=== PATIENT | female | born 1945 | race Caucasian/White ===

== ENCOUNTER → 2019-08-27 | Outpatient (CLI) | payer MEDICARE | LOC: CARD 13:40 | PROVIDERS: ATTEND Family Medicine | DX: I42.0 Dilated cardiomyopathy (principal) | CPT/HCPCS: 93306 ==

== ENCOUNTER 2021-03-15 05:39 | Outpatient (CLI) | payer MEDICARE ==
[~2021-03-15] VITALS: Ht 160 cm; Wt 87.3 kg
[~2021-03-15 05:39] MED LIST: ACET-2650 PO; AMOX-358 PO; ASPI-1238 PO; CARV25TA PO; FISH1CAP15 PO; GLIP10TA13 PO; HYDR25TA4 PO; LOSA100T57 PO; MULT-141 PO; OMEP20TA7 PO; PARO20TA5 PO; POTA10TA36 PO
== END 2021-03-15 15:35 | disposition home or self-care (01) ==
LOC: PREOP 05:39
PROVIDERS: ATTEND Surgery
DX: Z01.818 Encounter for other preprocedural examination (principal)

== ENCOUNTER → 2021-03-19 | Outpatient (CLI) | payer MEDICARE | LOC: LAB FS 10:00 | PROVIDERS: ATTEND Surgery | DX: Z01.812 Encounter for preprocedural laboratory examination (principal); Z12.11 Encounter for screening for malignant neoplasm of colon; Z20.822 Contact with and (suspected) exposure to COVID-19 | CPT/HCPCS: 87636 ==

== ENCOUNTER → 2022-04-26 | Outpatient (CLI) | payer MEDICARE ==
[~2022-04-26] MED LIST changes: +OMEP20TA56 PO; -OMEP20TA7 PO; +POTA-177 PO; -POTA10TA36 PO
== END ==
LOC: CARDFS 09:36
PROVIDERS: ATTEND Family Medicine
DX: I42.0 Dilated cardiomyopathy (principal); I51.7 Cardiomegaly
CPT/HCPCS: 93306